=== PATIENT | male | born 1990 | race Two or more races ===

== ENCOUNTER 2018-06-23 20:36 | Emergency (ER) | payer MEDICAID | END 2018-06-24 02:11 | disposition left against medical advice (07) | LOC: ER 20:36 | DX: R07.9 Chest pain, unspecified (principal); Z53.21 Procedure and treatment not carried out due to patient leaving prior to being seen by health care provider ==

== ENCOUNTER 2022-12-22 18:02 | Inpatient (IN) | payer MEDICAID ==
[~2022-12-22] VITALS: Ht 162.6 cm; Wt 85.8 kg
[2022-12-22] MEDS ORDERED: IOHEXOL-300 100 ML BOTTLE ONE (18:41)
[2022-12-22 19:26] LABS: CLARITY URINE CLEAR (CLEAR); COLOR URINE YELLOW (YELLOW); KETONES URINE NEGATIVE (NEGATIVE); LEUKOCYTE ESTERASE URINE NEGATIVE (NEGATIVE); NITRITE URINE NEGATIVE (NEGATIVE); OCCULT BLOOD URINE NEGATIVE (NEGATIVE); PH URINE 6.5 (4.5-8.0); PROTEIN URINE NEGATIVE (NEGATIVE); SPECIFIC GRAVITY URINE 1.057 (1.005-1.030); UROBILINOGEN URINE 0.2 E.U./dL (0.2-1.0)
[2022-12-22] MEDS ORDERED: IOHEXOL-350 100 ML BOTTLE ONE (19:31)
[2022-12-22 19:42] LABS: *AMPHETAMINES SCREEN URINE NEGATIVE (NEGATIVE); *BARBITURATES SCREEN URINE NEGATIVE (NEGATIVE); *BENZODIAZEPINES SCREEN URINE NEGATIVE (NEGATIVE); *COCAINE SCREEN URINE NEGATIVE (NEGATIVE); CANNABINOID URINE SCREEN NEGATIVE (NEGATIVE); METHADONE URINE SCREEN NEGATIVE (NEGATIVE); OPIATES URINE SCREEN NEGATIVE (NEGATIVE); PHENCYCLIDINE URINE SCREEN NEGATIVE (NEGATIVE)
[2022-12-22] MEDS ORDERED: DEXT 5%/LACTATED RINGERS 1,000 ML IV SCH (20:15)
[2022-12-22] MEDS ORDERED: MORPHINE SULFATE 2 MG/ML CPJ (NOT FOR IM USE) IV PRN (20:15)
[2022-12-22 21:02] LABS: BASOPHILS % 0.4 % (0.0-2.0); EOSINOPHILS % 3.8 % (0.0-5.0); HEMATOCRIT. 45.5 % (42.0-52.0); HEMOGLOBIN. 15.6 g/dL (14.0-18.0); LYMPHOCYTES % 36.6 % (20.0-50.0); MEAN CORPUSCULAR HEMOGLOBIN 30.3 pg (28.0-32.0); MEAN CORPUSCULAR VOLUME 88.1 fL (80.0-94.0); MEAN PLATELET VOLUME 9.2 fl (7.4-10.4); MONOCYTES % 8.2 % (2.0-8.0); PLATELET 245 x1000/uL (130-400); RED BLOOD CELL COUNT 5.17 mill/uL (4.7-6.1); RED CELL DISTRIBUTION WIDTH 14.3 % (11.6-14.6)
[2022-12-22 21:07] LABS: CHLORIDE 105 mEq/L (98-107)
[2022-12-22 21:19] LABS: ETHANOL BLOOD < 10 mg/dL
[2022-12-22 22:51] VITALS: BP 116/59
[2022-12-22 23:00] VITALS: BP_SYST 116; BP_SYST 97; BP_DIAS 59; BP_DIAS 73
[2022-12-22 23:15] VITALS: BP 110/70
[2022-12-22 23:30] VITALS: BP 105/71
[2022-12-22 23:45] VITALS: BP 101/65
[2022-12-22] MEDS: DEXAMETHASONE 4MG/ML 1ML VIAL IV SCH (23:58)
[2022-12-23] VITALS (49 sets, daily range): BP systolic 96–130; BP diastolic 38–76
[2022-12-23] MEDS ORDERED: ONDANSETRON HCL 4MG/2ML INJ IV PRN (00:15)
[2022-12-23] MEDS ORDERED: ACETAMINOPHEN 325MG TABLET PO PRN (00:15)
[2022-12-23] MEDS ORDERED: FENTANYL CITRATE/PF 2,500 MCG in SODIUM CHLORIDE 0.9% 200 ML IV PRN (01:00)
[2022-12-23] MEDS: LEVETIRACETAM 500MG PREMIX 100 ML IV SCH ×3 (01:00→20:03)
[2022-12-23 05:39] LABS: BASOPHILS % 0.2 % (0.0-2.0); EOSINOPHILS % 0.7 % (0.0-5.0); HEMATOCRIT. 46.5 % (42.0-52.0); HEMOGLOBIN. 16.2 g/dL (14.0-18.0); LYMPHOCYTES % 13.4 % (20.0-50.0); MEAN CORPUSCULAR HEMOGLOBIN 30.6 pg (28.0-32.0); MEAN CORPUSCULAR VOLUME 87.9 fL (80.0-94.0); MEAN PLATELET VOLUME 9.5 fl (7.4-10.4); MONOCYTES % 2.5 % (2.0-8.0); NEUTROPHILS % 83.2 % (40.0-76.0); PLATELET 230 x1000/uL (130-400); RED BLOOD CELL COUNT 5.29 mill/uL (4.7-6.1); RED CELL DISTRIBUTION WIDTH 14.1 % (11.6-14.6)
[2022-12-23] MEDS: DEXAMETHASONE 4MG/ML 1ML VIAL IV SCH ×3 (05:39→17:37)
[2022-12-23 05:56] LABS: CHLORIDE 107 mEq/L (98-107)
[2022-12-23] MEDS: PANTOPRAZOLE SODIUM 40 MG/VIAL IV SCH (08:24)
[2022-12-23] MEDS ORDERED: LEVETIRACETAM 500MG PREMIX 100 ML IV SCH (09:00)
[2022-12-24] VITALS (27 sets, daily range): BP systolic 65–139; BP diastolic 34–82
[2022-12-24] MEDS: DEXAMETHASONE 4MG/ML 1ML VIAL IV SCH ×2 (00:42→05:39)
[2022-12-24] MEDS: PANTOPRAZOLE SODIUM 40 MG/VIAL IV SCH (08:01)
[2022-12-24] MEDS: LEVETIRACETAM 500MG PREMIX 100 ML IV SCH (08:02)
[2022-12-24] MEDS: CHLORPROMAZINE HCL 25 MG TABLET PO PRN ×2 (11:54→16:29)
[2022-12-24] MEDS ORDERED: KEPP500 MT (12:51)
== END 2022-12-24 18:45 | disposition home or self-care (01) | DRG 44 ==
LOC: ER 18:02 → MICUSO 20:53 → EDBEDREQ 20:59 → EDBEDREQSVC 20:59 → MICUNO 22:45 → 6EST 12-24 12:19
PROVIDERS: ADMIT Internal Medicine; ATTEND Internal Medicine
DX: I61.9 Nontraumatic intracerebral hemorrhage, unspecified (principal); G93.6 Cerebral edema; I67.5 Moyamoya disease; E66.9 Obesity, unspecified; J30.2 Other seasonal allergic rhinitis; Z68.32 Body mass index [BMI] 32.0-32.9, adult; Z90.49 Acquired absence of other specified parts of digestive tract
CPT/HCPCS: 36415; 70496; 70498; 71045; 80048; 80053; 80305; 80320; 81003; 84484; 85025; 93005; 99291; C9113; J1100; J1953; J2405; Q9967; G0480